=== PATIENT | male | born 1995 | race Caucasian/White ===

== ENCOUNTER 2020-06-08 20:22 | Emergency (ER) | payer SELFPAY ==
[~2020-06-08] VITALS: Ht 175.3 cm; Wt 59.0 kg
[2020-06-08] MEDS ORDERED: LORazepam 1 MG TABLET PO ONE (21:30)
[2020-06-08 21:38] LABS: BASO % 1 % (0-3); EOS % 0 % (0-3); HEMATOCRIT 46.4 % (39.0-53.0); HEMOGLOBIN 14.8 g/dL (13.0-17.5); LYMPH # 2.3 x10^3/uL (1.0-4.8); LYMPH % 40 % (24-48); MEAN CORPUSCULAR HEMOGLOBIN 28 pg (25-35); MEAN CORPUSCULAR HGB CONC 32 g/dL (31-37); MEAN CORPUSCULAR VOLUME 86 fL (79-100); MONO # 0.9 x10^3/uL (0.0-1.1); MONO % 15 % (0-9); NEUT # 2.6 x10^3uL (1.8-7.7); NEUT % 44 % (31-73); PLATELET COUNT 161 x10^3/uL (140-400); RED BLOOD COUNT 5.39 x10^6/uL (4.30-5.70); RED CELL DISTRIBUTION WIDTH 13.9 % (11.5-14.5); WHITE BLOOD COUNT 5.8 x10^3/uL (4.0-11.0)
[2020-06-08] MEDS ORDERED: LORazepam 1 MG TABLET ONE (21:42)
--- NOTE | 2020-06-08 21:49 | PHYS DOC ---
Past History Smoking: Cigarettes Alcohol Use: Occasionally Drug Use: Amphetamine, Marijuana, Methamphetamine (BLANQUITA WELLER MD) Adult General Chief Complaint Chief Complaint: DRUG ABUSE HPI HPI Patient is a 24-year-old male presents to the emergency department with complaints of feeling paranoid after vaping an unknown substance prior to arrival. Patient is unsure when he ingested substance. Patient notes that he did inhale it through a vaping type apparatus. Patient states he has smoked marijuana in the past and has snorted oxycodone in the past. Patient denies any chest pain, shortness of breath, nasal congestion, chest congestion, nausea, vomiting, diarrhea. Patient denies any visual disturbances. Patient denies homicidal or suicidal ideation. Patient has his grandmother sitting by bedside, grandmother states that the patient has been acting paranoid and accusing coworkers of "trying to get him "and walked out of work yesterday. (VIKTOR ORTIZ APRN) Review of Systems Review of Systems 14 body systems of review of systems have been reviewed. See HPI for pertinent positives and negative responses, otherwise all other systems are negative, nonpertinent or noncontributory. (VIKTOR ORTIZ APRN) Current Medications Current Medications Current Medications Medications (Trade) Dose Ordered Sig/Wenceslao Start Time Stop Time Status Last Admin Dose Admin Lorazepam (Ativan) 1 mg 1X ONCE 06/08/20 21:30 06/08/20 21:31 DC 06/08/20 21:29 1 MG (VIKTOR ORTIZ APRN) Allergies Allergies Allergies Coded Allergies Type Severity Reaction Last Updated Verified No Known Drug Allergies 06/08/20 No (VIKTOR ORTIZ APRN) Physical Exam Physical Exam Constitutional: Well developed, well nourished, no acute distress, non-toxic appearance. 24-year-old male, anxious during physical examination. HENT: Normocephalic, atraumatic, bilateral external ears normal, oropharynx moist, no oral exudates, nose normal. Eyes: PERRLA, EOMI, conjunctiva normal, no discharge. Pupils 5 to 6 mm with mydriasis appreciated Neck: Normal range of motion, no tenderness, supple, no stridor. Cardiovascular:Heart rate regular rhythm, no murmur Lungs & Thorax: Bilateral breath sounds clear to auscultation Abdomen: Bowel sounds normal, soft, no tenderness, no masses, no pulsatile masses. Skin: Warm, dry, no erythema, no rash. Back: No tenderness, no CVA tenderness. Extremities: No tenderness, no cyanosis, no clubbing, ROM intact, no edema. Neurologic: Alert and oriented X 3, normal motor function, normal sensory function, no focal deficits noted. Psychologic: Affect anxious, judgement poor, mood calm and cooperative during examination. (VIKTOR ORTIZ APRN) Current Patient Data Lab Results Laboratory Tests Test 06/08/20 21:20 White Blood Count 5.8 x10^3/uL (4.0-11.0) Red Blood Count 5.39 x10^6/uL (4.30-5.70) Hemoglobin 14.8 g/dL (13.0-17.5) Hematocrit 46.4 % (39.0-53.0) Mean Corpuscular Volume 86 fL (79-100) Mean Corpuscular Hemoglobin 28 pg (25-35) Mean Corpuscular Hemoglobin Concent 32 g/dL (31-37) Red Cell Distribution Width 13.9 % (11.5-14.5) Platelet Count 161 x10^3/uL (140-400) Neutrophils (%) (Auto) 44 % (31-73) Lymphocytes (%) (Auto) 40 % (24-48) Monocytes (%) (Auto) 15 % (0-9) H Eosinophils (%) (Auto) 0 % (0-3) Basophils (%) (Auto) 1 % (0-3) Neutrophils # (Auto) 2.6 x10^3uL (1.8-7.7) Lymphocytes # (Auto) 2.3 x10^3/uL (1.0-4.8) Monocytes # (Auto) 0.9 x10^3/uL (0.0-1.1) Eosinophils # (Auto) 0.0 x10^3/uL (0.0-0.7) Basophils # (Auto) 0.0 x10^3/uL (0.0-0.2) (VIKTOR ORTIZ APRN) EKG EKG [] (VIKTOR ORTIZ APRN) Radiology/Procedures Radiology/Procedures [] (VIKTOR ORTIZ APRN) Heart Score Risk Factors: Risk Factors: DM, Current or recent (<one month) smoker, HTN, HLP, family history of CAD, obesity. Risk Scores: Risk Factors: DM, Current or recent (<one month) smoker, HTN, HLP, family history of CAD, obesity. (VIKTOR ORTIZ APRN) Course & Med Decision Making Course & Med Decision Making Pertinent Labs and Imaging studies reviewed. (See chart for details) 24-year-old male, vital signs stable, within normal limits, and reviewed, presents to the emergency department with concerns that he feels like he may have smoked a drug of unknown substance through a vaping apparatus and now feels strange. Physical examination was concerning for possible drug ingestion versus a psychiatric personality disorder. Will initiate psych/drug examination work- up in the ED. Patient's grandmother is at bedside, patient is currently calm and cooperative, is amenable with psychiatric/drug examination work-up at this time. Patient was anxious during ED work-up and examination, 1 mg p.o. Ativan was given to patient. ED plan to evaluate patient's lab work, then consult psychiatric service for evaluation of patient's presentation of paranoia. Labs pending at this time, discussed patient case with ED attending Dr. Weller who has agreed to take over patient care at this time. (VIKTOR ORTIZ APRN) Course & Med Decision Making Pt. observed in ED for several hours with clearing of mental status. Did admit to vaping unknown substance. Reviewed at length risk of his drug abuse. Also discussed this with his grandmother who remained at bedside. She reported that he was at baseline at time of discharge. Encourage patient keep follow-up at counseling center. Encourage patient avoid further use of illicit drugs. To return if any concerns. Discussed issues of his paranoid thoughts may represent psychiatric changes however with the clearing of mentation suspect primary cause of his erratic behavior and mental status changes drug abuse. Follow-up with . Return if any concerns. Impression: 1. History of polysubstance abuse 2. History of acute mental status change (BLANQUITA WELLER MD) Chace Disclaimer Chace Disclaimer This electronic medical record was generated, in whole or in part, using a voice recognition dictation system. (VIKTOR ORTIZ APRN) Departure Departure: Referrals: LUDIVINA JARAMILLO MD (PCP) Chace Disclaimer This chart was dictated in whole or in part using Voice Recognition software in a busy, high-work load, and often noisy Emergency Department environment. It may contain unintended and wholly unrecognized errors or omissions. (BLANQUITA WELLER MD) VIKTOR ORTIZ APRN Jun 08, 2020 21:49 BLANQUITA WELLER MD Jun 09, 2020 08:27
[2020-06-08 21:58] LABS: CALCIUM 9.4 mg/dL (8.5-10.1); CREATININE 1.1 mg/dL (0.7-1.3); GFR 83.7; POTASSIUM 3.7 mmol/L (3.5-5.1)
[2020-06-08 22:02] LABS: ACETAMIN < 2.0 mcg/mL (10-30); ETHANOL < 10 mg/dL (0-10); SALIC < 2.8 mg/dL (2.8-20.0)
[2020-06-08 22:03] LABS: ALBUMIN 4.7 g/dL (3.4-5.0); ALBUMIN/GLOBULIN RATIO 1.5 (1.0-1.7); TOTAL BILIRUBIN 0.6 mg/dL (0.2-1.0); TOTAL PROTEIN 7.9 g/dL (6.4-8.2)
[2020-06-08 22:24] LABS: BILIRUBIN,URINE NEG (NEG); CLARITY,URINE CLEAR; COLOR,URINE YELLOW; GLUCOSE,URINE NEG (NEG); NITRITE,URINE NEG (NEG)
[2020-06-08 22:25] LABS: BACTERIA,URINE 0 /HPF (0-FEW); RBC,URINE 0 /HPF (0-2); SQUAMOUS EPITHELIAL CELL,UR OCC /LPF; WBC,URINE OCC /HPF (0-4)
[2020-06-08 22:30] LABS: AMPHETAMINE/METHAMPHETAMINE NEG (NEG); BARBITURATES NEG (NEG); BENZODIAZEPINES NEG (NEG); CANNABINOIDS POS (NEG); COCAINE NEG (NEG); METHADONE NEG (NEG); OPIATES NEG (NEG); PHENCYCLIDINE NEG (NEG)
[2020-06-09 00:01] VITALS: BP 115/59
== END 2020-06-09 00:48 | disposition home or self-care (01) ==
LOC: ER 20:22
DX: R41.82 Altered mental status, unspecified (principal); F19.10 Other psychoactive substance abuse, uncomplicated; F17.210 Nicotine dependence, cigarettes, uncomplicated
CPT/HCPCS: 36415; 80053; 80307; 80329; 81001; 85025; 99284; G0480